=== PATIENT | male | born 1945 | race Caucasian/White ===

== ENCOUNTER 2016-08-27 13:40 | Emergency (ER) | payer MEDICARE, BC ==
[2016-08-27] MEDS ORDERED: IPRATROPIUM-ALBUTEROL 3 ML NEB INHALATION STA (15:33)
--- NOTE | 2016-08-27 15:37 | ED ---
URI HPI - General Chief Complaint: Upper Respiratory Infection Stated Complaint: cough dif breathing Time Seen by Provider: 08/27/16 15:03 Source: patient Mode of arrival: ambulatory Limitations: no limitations - History of Present Illness Initial Comments: The patient is a 71-year-old male who presents to the ED with a chief complaint of cough. Patient states that the cough is intractable in nature. He states that it has been present over the course of the past 6 months. The patient states that he initially went to see his physician in [place], where he resides for the majority of the year. This physician started him on Breo, the patient states helped resolve his symptoms. The patient notes that he went to see a forklift material handler while in [place], who performed a computed tomography scan and MRI for the patient. The patient has had a very extensive workup to determine the etiology of his cough. He states the only thing that helped was Breo. The patient states that his symptoms worsened when he arrived in [place]. He states that he does have a history of seasonal allergies but has been taking his allergy medication. He states that he did not initially have any Breo with him when he arrived in [place]. He was able to call his physician in [place], who was able to prescribe him this medication. The patient denies any fevers or chills. He denies any shortness of breath. He does state that he has a pleuritic pain across the anterior chest and feels as if his chest is congested. Patient does have a history of atrial fibrillation that is paroxysmal in nature. He takes Xarelto for this problem. He has a history of CHF for which he is taking Lasix 40 mg by mouth daily while at home. The patient states that he is currently trying to find a physician in this area of [place]. He has made an appointment with a primary care provider in [place]. He has attempted to make an appointment with a Report Manager, but states that he cannot get in until mid September. - Related Data Home Medications Medication Instructions Recorded Confirmed Amiodarone [Cordarone] 100 mg PO DAILY 08/27/16 08/27/16 Ascorbic Acid [Vitamin C] 500 mg PO DAILY 08/27/16 08/27/16 Calcium Carbonate [Calcium] 600 mg PO DAILY 08/27/16 08/27/16 Ezetimibe [Zetia] 10 mg PO HS 08/27/16 08/27/16 Fluticasone/Vilanterol [Breo 1 puff INHALATION RT-DAILY 08/27/16 08/27/16 Ellipta 100-25 Mcg Inhaler] Furosemide [Lasix] 40 mg PO DAILY 08/27/16 08/27/16 Levocetirizine Dihydrochloride 5 mg PO DAILY 08/27/16 08/27/16 Multivitamins, Thera [Multivitamin 1 tab PO DAILY 08/27/16 08/27/16 (formulary)] Olopatadine HCl [Pataday] 1 drop BOTH EYES BID PRN 08/27/16 08/27/16 Shellman-3/Dha/Epa/Fish Oil [Fish Oil 2 cap PO BID 08/27/16 08/27/16 EC 1,000 mg Softgel] Pantoprazole Sodium [Protonix] 40 mg PO DAILY 08/27/16 08/27/16 Rivaroxaban [Xarelto] 20 mg PO HS 08/27/16 08/27/16 amLODIPine BESYLATE/BENAZEPRIL 1 cap PO BID 08/27/16 08/27/16 [Lotrel 5-20 mg Capsule] Previous Rx's Medication Instructions Recorded Azithromycin [Zithromax] 500 mg PO DAILY #5 tab 08/27/16 predniSONE 40 mg PO DAILY #10 tab 08/27/16 Allergies Allergy/AdvReac Type Severity Reaction Status Date / Time tramadol Allergy Rash/Hives Verified 08/27/16 15:41 Review of Systems ROS Statement: Those systems with pertinent positive or pertinent negative responses have been documented in the HPI. ROS Other: All systems not noted in ROS Statement are negative. Constitutional: Denies: fever, chills, weakness Eyes: Denies: eye pain ENT: Denies: ear pain, throat pain, dental pain Respiratory: Reports: cough, wheezes. Denies: dyspnea, hemoptysis, stridor Cardiovascular: Reports: chest pain (pleuritic) Endocrine: Denies: fatigue Gastrointestinal: Denies: abdominal pain, nausea, vomiting, diarrhea, constipation Genitourinary: Denies: urgency, dysuria, frequency, hematuria Musculoskeletal: Denies: back pain Skin: Denies: rash, lesions, change in color Neurological: Denies: headache, weakness, numbness Psychiatric: Denies: anxiety, depression Past Medical History Past Medical History: Atrial Fibrillation, Asthma, Heart Failure, CVA/TIA, GERD/ Reflux, Hyperlipidemia, Hypertension History of Any Multi-Drug Resistant Organisms: None Reported Past Surgical History: Cholecystectomy, Heart Catheterization, Orthopedic Surgery Additional Past Surgical History / Comment(s): right knee, fatty tumor removal neck Past Psychological History: No Psychological Hx Reported Smoking Status: Never smoker Past Alcohol Use History: Rare Past Drug Use History: None Reported General Exam Limitations: no limitations General appearance: alert, in no apparent distress Head exam: Present: atraumatic, normocephalic Eye exam: Present: normal appearance, PERRL, EOMI Pupils: Present: normal accommodation ENT exam: Present: normal exam, normal oropharynx Neck exam: Present: normal inspection, full ROM Respiratory exam: Present: wheezes (trace bilateral expiratory wheezes). Absent : normal lung sounds bilaterally, respiratory distress, rales, rhonchi, stridor Cardiovascular Exam: Present: regular rate, normal rhythm. Absent: bradycardia , tachycardia, irregular rhythm GI/Abdominal exam: Present: soft. Absent: distended, tenderness, guarding, rebound Extremities exam: Present: normal inspection. Absent: pedal edema Back exam: Present: normal inspection, full ROM Neurological exam: Present: alert, oriented X3 Psychiatric exam: Present: normal affect, normal mood Skin exam: Present: warm, dry, intact Course Vital Signs 08/27/16 08/27/16 08/27/16 14:05 15:46 16:06 Temperature 97.2 F L Pulse Rate 63 55 L 56 L Respiratory 16 20 Rate Blood Pressure 169/80 161/85 O2 Sat by Pulse 90 L 91 L Oximetry 08/27/16 08/27/16 16:13 17:57 Temperature 97.4 F L Pulse Rate 56 L 57 L Respiratory 18 Rate Blood Pressure 157/82 O2 Sat by Pulse 92 L Oximetry Medical Decision Making - Medical Decision Making Patient is a 71-year-old male who presents to the ED with a chief complaint of cough. Patient states that he's undergone an extensive evaluation as an outpatient. All of this workup was in [place]. He states that he seen a Report Manager in [place], who ordered a CT and MRI of his chest. He states that everything came back normal and they were unable to determine the etiology of his cough. Patient has no history of smoking. He states that he did smoke cigars for a few years but that he never inhaled. Patient notes that the only medication that is made a difference with his cough is Breo. He denies that he' s been on any recent steroid therapy. Patient does cite pleuritic pain with his cough. States cough is worse laying flat. Patient does have a known history of CHF for which she is currently using Lasix. Will provide patient with DuoNeb treatment. Check chest x-ray. Check lab work including BNP as well as troponin. EKG. Keep patient on quality assurance monitor chassis and continuous pulse oximetry. 5:27 PM Updated the patient and his of overall findings, including evidence of probable COPD. There is a questionable left-sided pleural effusion on chest x- ray. I have suggested to the patient that he could be suffering from chronic bronchitis. Recommended that he continue to follow up with Pulmonology for his appointment in mid-September. Will discharge patient home with a short course of steroids as well as azithromycin. Patient has been provided with a dose of azithromycin as well as steroids while here in the ED. I have encouraged the patient to continue with his Breo inhaler while at home. I have answered all his questions to his satisfaction. I have encouraged him to return to the ED should he have worsening symptoms while home. - Lab Data Result diagrams: 08/27/16 15:55 08/27/16 15:55 Lab Results 08/27/16 08/27/16 08/27/16 Range/Units 15:55 15:55 15:55 WBC 7.2 (3.8-10.6) k/uL RBC 5.91 H (4.30-5.90) m/uL Hgb 15.5 (13.0-17.5) gm/dL Hct 48.6 (39.0-53.0) % MCV 82.1 (80.0-100.0) fL MCH 26.2 (25.0-35.0) pg MCHC 31.9 (31.0-37.0) g/dL RDW 14.9 (11.5-15.5) % Plt Count 241 (150-450) k/uL Neutrophils % 67 % Lymphocytes % 17 % Monocytes % 6 % Eosinophils % 8 % Basophils % 2 % Neutrophils # 4.8 (1.3-7.7) k/uL Lymphocytes # 1.2 (1.0-4.8) k/uL Monocytes # 0.4 (0-1.0) k/uL Eosinophils # 0.5 (0-0.7) k/uL Basophils # 0.1 (0-0.2) k/uL Hypochromasia Slight Sodium 143 (137-145) mmol/L Potassium 4.0 (3.5-5.1) mmol/L Chloride 105 (98-107) mmol/L Carbon Dioxide 25 (22-30) mmol/L Anion Gap 13 mmol/L BUN 21 H (9-20) mg/dL Creatinine 0.99 (0.66-1.25) mg/dL Est GFR (MDRD) Af Amer >60 (>60 ml/min/1.73 sqM) Est GFR (MDRD) Non-Af >60 (>60 ml/min/1.73 sqM) Glucose 99 (74-99) mg/dL Calcium 9.6 (8.4-10.2) mg/dL Magnesium 2.0 (1.6-2.3) mg/dL Troponin I (0.000-0.034) ng/mL NT-Pro-B Natriuret Pep 38 pg/mL 08/27/16 Range/Units 15:55 WBC (3.8-10.6) k/uL RBC (4.30-5.90) m/uL Hgb (13.0-17.5) gm/dL Hct (39.0-53.0) % MCV (80.0-100.0) fL MCH (25.0-35.0) pg MCHC (31.0-37.0) g/dL RDW (11.5-15.5) % Plt Count (150-450) k/uL Neutrophils % % Lymphocytes % % Monocytes % % Eosinophils % % Basophils % % Neutrophils # (1.3-7.7) k/uL Lymphocytes # (1.0-4.8) k/uL Monocytes # (0-1.0) k/uL Eosinophils # (0-0.7) k/uL Basophils # (0-0.2) k/uL Hypochromasia Sodium (137-145) mmol/L Potassium (3.5-5.1) mmol/L Chloride (98-107) mmol/L Carbon Dioxide (22-30) mmol/L Anion Gap mmol/L BUN (9-20) mg/dL Creatinine (0.66-1.25) mg/dL Est GFR (MDRD) Af Amer (>60 ml/min/1.73 sqM) Est GFR (MDRD) Non-Af (>60 ml/min/1.73 sqM) Glucose (74-99) mg/dL Calcium (8.4-10.2) mg/dL Magnesium (1.6-2.3) mg/dL Troponin I <0.012 (0.000-0.034) ng/mL NT-Pro-B Natriuret Pep pg/mL 08/27/16 15:47 EKG demonstrates NSR with a rate of 57. There are no concerning ST-T changes. MS and QRS intervals are within normal limits. Disposition Clinical Impression: Acute bronchitis, COPD (chronic obstructive pulmonary disease) Disposition: HOME SELF-CARE Condition: Good Instructions: COPD (Chronic Obstructive Pulmonary Disease) (ED), Chronic Bronchitis (ED) Prescriptions: Azithromycin [Zithromax] 500 mg PO DAILY #5 tab predniSONE 40 mg PO DAILY #10 tab Referrals: Nonstaff,Physician [Primary Care Provider] - 1-2 days Time of Disposition: 17:27
[2016-08-27 16:05] LABS: Basophils # (A) 0.1 k/uL (0-0.2); Basophils % (A) 2 %; CH 26.1; Eosinophils # (A) 0.5 k/uL (0-0.7); Eosinophils % (A) 8 %; HCT 48.6 % (39.0-53.0); HDW 2.83; HGB 15.5 gm/dL (13.0-17.5); Hypochromasia Slight; Luc # (Auto) 0.11; Luc % (Auto) 2; Lymphocytes # (A) 1.2 k/uL (1.0-4.8); Lymphocytes % (A) 17 %; MCH 26.2 pg (25.0-35.0); MCHC 31.9 g/dL (31.0-37.0); MCV 82.1 fL (80.0-100.0); Mean Platelet Volume 8.1; Monocytes # (A) 0.4 k/uL (0-1.0); Monocytes % (A) 6 %; Neutrophils # (A) 4.8 k/uL (1.3-7.7); Neutrophils % (A) 67 %; RBC 5.91 m/uL (4.30-5.90); RDW 14.9 % (11.5-15.5); WBC 7.2 k/uL (3.8-10.6); WBC (Perox) 7.26
--- NOTE | 2016-08-27 16:10 | XR ---
EXAMINATION TYPE: XR chest 2V DATE OF EXAM: 08/27/2016 HISTORY: Cough. REFERENCE: Previous study dated 09/05/2011. FINDINGS: Lung volumes are prominent. The lungs are clear. There is a small left pleural reaction whi ch may represent a small amount of fluid. The heart is not enlarged.. IMPRESSION: 1. COPD. 2. I CANNOT EXCLUDE A SMALL LEFT-SIDED EFFUSION.
[2016-08-27 16:26] LABS: Anion Gap 13 mmol/L; Blood Urea Nitrogen 21 mg/dL (9-20); Calcium 9.6 mg/dL (8.4-10.2); Carbon Dioxide 25 mmol/L (22-30); Chloride 105 mmol/L (98-107); Glucose 99 mg/dL (74-99); Non-African American GFR(MDRD) >60 (>60 ml/min/1.73 sqM); Sodium 143 mmol/L (137-145)
[2016-08-27] MEDS ORDERED: AZITHROMYCIN 500 MG TAB PO STA (17:25)
[2016-08-27] MEDS ORDERED: predniSONE 20 MG TAB PO STA (17:25)
[2016-08-27 17:58] VITALS: BP 157/82; PULSE 57; RESP 18; TEMP 97.4
== END 2016-08-27 17:57 | disposition home or self-care (01) ==
LOC: EC 13:40
DX: J44.0 Chronic obstructive pulmonary disease with (acute) lower respiratory infection (principal); J20.9 Acute bronchitis, unspecified; R07.81 Pleurodynia; I48.91 Unspecified atrial fibrillation; I11.0 Hypertensive heart disease with heart failure; I50.9 Heart failure, unspecified; K21.9 Gastro-esophageal reflux disease without esophagitis; E78.5 Hyperlipidemia, unspecified; Z86.73 Personal history of transient ischemic attack (TIA), and cerebral infarction without residual deficits; Z79.51 Long term (current) use of inhaled steroids; Z79.01 Long term (current) use of anticoagulants; Z79.899 Other long term (current) drug therapy; Z88.6 Allergy status to analgesic agent
CPT/HCPCS: 36415; 94640; 93005; 83880; 80048; 83735; 84484; 85025; 71020; 99284; J7512

== ENCOUNTER 2019-12-18 08:41 | Inpatient (IN) | payer MEDICARE, BC ==
[2019-12-18] MEDS ORDERED: SODIUM CHLORIDE 0.9% 500 ML 500 ML IV STA (08:56)
[2019-12-18 09:00] LABS: Glucose,Whole Blood 121 mg/dL (75-99)
--- NOTE | 2019-12-18 09:00 | ED ---
General Adult HPI - General Chief complaint: Neuro Symptoms/Deficit Stated complaint: Poss stroke Source: patient Mode of arrival: wheelchair Limitations: physical limitation - History of Present Illness Initial comments: Dictation was produced using [employer] dictation software. please excuse any grammatical, word or spelling errors. This patient was cared for during a federal and state declared state of emergency secondary to Covid 19 Chief Complaint: 74-year-old male presents with stroke like symptoms upon waking. History of Present Illness: Patient is 74-year-old male he has past medical history of cerebrovascular accident and transient ischemic attack 10 years ago. Patient states that he went to bed at 11 PM last night at baseline. He woke up this morning with paresthesias to the palmar aspect of his right palm, interactive his right foot. Patient has history of atrial fibrillation. Takes Xarelto. He woke up this morning at approximately 6 AM symptoms. Patient has any facial weakness. Denies any upper extremity weakness. at bedside reports the patient is not confused dysarthric or aphasic. The ROS documented in this emergency department record has been reviewed and confirmed by me. Those systems with pertinent positive or negative responses have been documented in the HPI. All other systems are other negative and/or noncontributory. PHYSICAL EXAM: General Impression: Alert and oriented x3, not in acute distress HEENT: Normocephalic atraumatic, extra-ocular movements intact, pupils equal and reactive to light bilaterally, mucous membranes moist. Cardiovascular: Heart regular rate and rhythm Chest: Able to complete full sentences, no retractions, no tachypnea Abdomen: abdomen soft, non-tender, non-distended, no organomegaly Musculoskeletal: Pulses present and equal in all extremities, no peripheral edema Motor: no focal deficits noted Neurological: CN II-XII grossly intact, reported paresthesias to the palm of the right hand, mild difficulty with stenting of the right leg, mild ataxia of the right leg. No drift of any of the extremities, no facial asymmetry Skin: Intact with no visualized rashes Psych: Normal affect and mood ED course: 74-year-old male presents with strokelike symptoms upon waking this morning. Vital signs upon arrival are within acceptable limits. Medications reviewed. Patient's last normal was 11 PM last night. Patient given an NIH of 23. Patient is on Xarelto. Patient is not a candidate for TPA. Code stroke was paged. Case is discussed with Dr. Alicea at approximately 9:20 AM. Patient is not a TPA candidate. Nurse performed an NIH with a score of 0. Case was discussed with Dr. Leslie who is our in-house neurologist. Dr. Leslie will make recommendations. We do not have neurology over the weekend however our in-house serology believes patient is appropriate for admission to our hospital. He will make his recommendations today. Discussed patient case with on-call sound physician was willing to accept patients care. Patient given aspirin patient reevaluated at bedside found with stable medical condition. EKG interpretation: Ventricular rate 86, paced rhythm, ID interval 200, QRS 152, QTc 431. No ID prolongation, no QTC prolongation, no ST or T-wave changes noted. - Related Data Home Medications Medication Instructions Recorded Confirmed Ascorbic Acid [Vitamin C] 500 mg PO DAILY 08/27/16 12/18/19 Calcium Carbonate [Calcium] 600 mg PO DAILY 08/27/16 12/18/19 Ezetimibe [Zetia] 10 mg PO HS 08/27/16 12/18/19 Furosemide [Lasix] 40 mg PO DAILY 08/27/16 12/18/19 Levocetirizine Dihydrochloride 5 mg PO DAILY PRN 08/27/16 12/18/19 Multivitamins, Thera [Multivitamin 1 tab PO DAILY 08/27/16 12/18/19 (formulary)] Olopatadine HCl [Pataday] 1 drop BOTH EYES BID PRN 08/27/16 12/18/19 Marquez-3/Dha/Epa/Fish Oil [Fish Oil 2 cap PO HS 08/27/16 12/18/19 EC 1,000 mg Softgel] Pantoprazole Sodium [Protonix] 40 mg PO Q72H 08/27/16 12/18/19 Rivaroxaban [Xarelto] 20 mg PO HS 08/27/16 12/18/19 Albuterol Sulfate [Ventolin HFA] 1 - 2 puff INHALATION RT-Q6H PRN 12/18/19 12/18/19 Cholecalciferol [Vitamin D3 (25 1,000 unit PO DAILY 12/18/19 12/18/19 Mcg = 1000 Iu)] Difluprednate [Durezol] 1 drop LEFT EYE BID 12/18/19 12/18/19 Fluticasone Nasal [place] [Flonase 1 spr EA NOSTRIL DAILY PRN 12/18/19 12/18/19 Nasal [place]] Losartan Potassium 100 mg PO HS 12/18/19 12/18/19 Magnesium Gluconate [Magonate] 500 mg PO BID 12/18/19 12/18/19 Metoprolol Succinate [Toprol XL] 25 mg PO HS 12/18/19 12/18/19 NIFEdipine [Procardia XL] 60 mg PO HS 12/18/19 12/18/19 cloNIDine HCL [Catapres] 0.1 mg PO DAILY PRN MDD OVER 155 12/18/19 12/18/19 clonazePAM [KlonoPIN] 0.5 mg PO DAILY PRN 12/18/19 12/18/19 guaiFENesin [Mucinex] 600 mg PO BID 12/18/19 12/18/19 Allergies Allergy/AdvReac Type Severity Reaction Status Date / Time tramadol Allergy Rash/Hives Verified 12/18/19 10:00 Review of Systems ROS Statement: Those systems with pertinent positive or pertinent negative responses have been documented in the HPI. ROS Other: All systems not noted in ROS Statement are negative. Past Medical History Past Medical History: Atrial Fibrillation, Asthma, Heart Failure, CVA/TIA, GERD/Reflux, Hyperlipidemia, Hypertension History of Any Multi-Drug Resistant Organisms: None Reported Past Surgical History: Cholecystectomy, Heart Catheterization, Orthopedic Surgery Additional Past Surgical History / Comment(s): right knee, fatty tumor removal neck Past Psychological History: No Psychological Hx Reported Smoking Status: Former smoker Past Alcohol Use History: Rare Past Drug Use History: None Reported General Exam Limitations: physical limitation Course Vital Signs 12/18/19 12/18/19 12/18/19 08:42 08:50 09:05 Temperature 97.5 F L 97.9 F 97.7 F Pulse Rate 50 L 55 L 89 Respiratory 18 16 18 Rate Blood Pressure 128/69 134/85 142/70 O2 Sat by Pulse 98 96 96 Oximetry Medical Decision Making - Lab Data Result diagrams: 12/18/19 09:02 12/18/19 09:02 Lab Results 12/18/19 12/18/19 12/18/19 Range/Units 08:56 09:02 09:02 WBC 6.8 (3.8-10.6) k/uL RBC 6.12 H (4.30-5.90) m/uL Hgb 17.6 H (13.0-17.5) gm/dL Hct 54.7 H (39.0-53.0) % MCV 89.3 (80.0-100.0) fL MCH 28.8 (25.0-35.0) pg MCHC 32.3 (31.0-37.0) g/dL RDW 13.4 (11.5-15.5) % Plt Count 220 (150-450) k/uL Neutrophils % 63 % Lymphocytes % 23 % Monocytes % 6 % Eosinophils % 5 % Basophils % 1 % Neutrophils # 4.3 (1.3-7.7) k/uL Lymphocytes # 1.6 (1.0-4.8) k/uL Monocytes # 0.4 (0-1.0) k/uL Eosinophils # 0.3 (0-0.7) k/uL Basophils # 0.1 (0-0.2) k/uL PT 14.4 H (9.0-12.0) sec INR 1.5 H (<1.2) APTT 33.3 H (22.0-30.0) sec Sodium (137-145) mmol/L Potassium (3.5-5.1) mmol/L Chloride (98-107) mmol/L Carbon Dioxide (22-30) mmol/L Anion Gap mmol/L BUN (9-20) mg/dL Creatinine (0.66-1.25) mg/dL Est GFR (CKD-EPI)AfAm (>60 ml/min/1.73 sqM) Est GFR (CKD-EPI)NonAf (>60 ml/min/1.73 sqM) Glucose (74-99) mg/dL POC Glucose (mg/dL) 121 H (75-99) mg/dL POC Glu Baby Stroller Rental Clerk ID [place] Calcium (8.4-10.2) mg/dL Magnesium (1.6-2.3) mg/dL Total Bilirubin (0.2-1.3) mg/dL AST (17-59) U/L ALT (4-49) U/L Alkaline Phosphatase (38-126) U/L Troponin I (0.000-0.034) ng/mL Total Protein (6.3-8.2) g/dL Albumin (3.5-5.0) g/dL 12/18/19 12/18/19 Range/Units 09:02 09:02 WBC (3.8-10.6) k/uL RBC (4.30-5.90) m/uL Hgb (13.0-17.5) gm/dL Hct (39.0-53.0) % MCV (80.0-100.0) fL MCH (25.0-35.0) pg MCHC (31.0-37.0) g/dL RDW (11.5-15.5) % Plt Count (150-450) k/uL Neutrophils % % Lymphocytes % % Monocytes % % Eosinophils % % Basophils % % Neutrophils # (1.3-7.7) k/uL Lymphocytes # (1.0-4.8) k/uL Monocytes # (0-1.0) k/uL Eosinophils # (0-0.7) k/uL Basophils # (0-0.2) k/uL PT (9.0-12.0) sec INR (<1.2) APTT (22.0-30.0) sec Sodium 140 (137-145) mmol/L Potassium 4.4 (3.5-5.1) mmol/L Chloride 107 (98-107) mmol/L Carbon Dioxide 24 (22-30) mmol/L Anion Gap 9 mmol/L BUN 25 H (9-20) mg/dL Creatinine 1.00 (0.66-1.25) mg/dL Est GFR (CKD-EPI)AfAm 84 (>60 ml/min/1.73 sqM) Est GFR (CKD-EPI)NonAf 73 (>60 ml/min/1.73 sqM) Glucose 125 H (74-99) mg/dL POC Glucose (mg/dL) (75-99) mg/dL POC Glu Baby Stroller Rental Clerk ID Calcium 9.4 (8.4-10.2) mg/dL Magnesium 2.1 (1.6-2.3) mg/dL Total Bilirubin 0.8 (0.2-1.3) mg/dL AST 46 (17-59) U/L ALT 68 H (4-49) U/L Alkaline Phosphatase 109 (38-126) U/L Troponin I <0.012 (0.000-0.034) ng/mL Total Protein 7.8 (6.3-8.2) g/dL Albumin 4.7 (3.5-5.0) g/dL Critical Care Time Critical Care Time: Yes Total Critical Care Time: 33 Disposition Clinical Impression: Cerebrovascular accident (CVA) Disposition: ADMITTED IP TO THIS [facility] Condition: Fair Referrals: None,Stated [REFERRING] - 1-2 days Decision Time: 10:15
[2019-12-18] MEDS ORDERED: RX INFO: IV CONTRAST WAS GIVEN 1 EACH MISC MISCELLANE PRN (09:03)
[2019-12-18 09:14] LABS: Basophils # (A) 0.1 k/uL (0-0.2); Basophils % (A) 1 %; Eosinophils # (A) 0.3 k/uL (0-0.7); Eosinophils % (A) 5 %; HCT 54.7 % (39.0-53.0); HGB 17.6 gm/dL (13.0-17.5); Lymphocytes # (A) 1.6 k/uL (1.0-4.8); Lymphocytes % (A) 23 %; MCH 28.8 pg (25.0-35.0); MCHC 32.3 g/dL (31.0-37.0); MCV 89.3 fL (80.0-100.0); Mean Platelet Volume 9.2; Monocytes # (A) 0.4 k/uL (0-1.0); Monocytes % (A) 6 %; Neutrophils # (A) 4.3 k/uL (1.3-7.7); Neutrophils % (A) 63 %; Platelet Count 220 k/uL (150-450); RBC 6.12 m/uL (4.30-5.90); RDW 13.4 % (11.5-15.5); WBC 6.8 k/uL (3.8-10.6)
--- NOTE | 2019-12-18 09:21 | CT ---
EXAMINATION TYPE: CT brain wo con for TPA DATE OF EXAM: 12/18/2019 COMPARISON: None INDICATION: CVA DLP: 1140.8 mGycm, Automated exposure control for dose reduction was used. CONTRAST: None CT of the brain is performed utilizing 3 mm thick sections through the posterior fossa and 3 mm thick sections through the remaining calvarium. Study is performed within 24 hours of arrival to the hosp [place]. No abnormal hyperdensity is present to suggest an acute intracranial hemorrhage. No mass lesion is evident. No acute infarcts are evident. Ventricles and sulci are appropriate for the patient age. Paranasal sinuses and mastoid air cells within the [id number] are essentially clear. Small retenti on cyst partially visualized in the right maxillary sinus. IMPRESSIONS: 1. No acute intracranial process.
[2019-12-18 09:25] LABS: Albumin 4.7 g/dL (3.5-5.0); Calcium 9.4 mg/dL (8.4-10.2); Magnesium 2.1 mg/dL (1.6-2.3); Potassium 4.4 mmol/L (3.5-5.1); Total Bilirubin 0.8 mg/dL (0.2-1.3); Total Protein 7.8 g/dL (6.3-8.2)
[2019-12-18 09:29] LABS: INR 1.5 (<1.2); Partial Thromboplastin Time 33.3 sec (22.0-30.0); Prothrombin Time 14.4 sec (9.0-12.0)
--- NOTE | 2019-12-18 09:50 | XR ---
EXAMINATION TYPE: XR chest 2V DATE OF EXAM: 12/18/2019 CLINICAL HISTORY: Altered mental status TECHNIQUE: Frontal and lateral views of the chest are obtained. COMPARISON: 08/27/16 chest x-ray FINDINGS: Left-sided dual tube or pacemaker. Low lung volumes accentuates the cardiac silhouette. Ca rdiomegaly and pulmonary vascular congestion. More focal airspace opacity over the right base. No eff usion, or pneumothorax seen. The osseous structures are intact. IMPRESSION: Cardiomegaly and pulmonary vascular congestion. More focal appearing airspace opacity ove r the right base may represent pulmonary edema versus pneumonia.
--- NOTE | 2019-12-18 09:59 | CT ---
EXAMINATION TYPE: CT angio head neck DATE OF EXAM: 12/18/2019 HISTORY: Code stroke and weakness in right side COMPARISON: CT brain same date CT DLP: 663.3 mGycm. Automated Exposure Control for Dose Reduction was Utilized. TECHNIQUE: CTA scan of the neck is performed with IV Contrast, patient injected with 75 mL of Isovue 370, axial images are obtained, coronal and sagittal reformatted images are reviewed. Three-D recons tructed images are created on an independent workstation and reviewed. FINDINGS: Carotid/Vascular Structures: The right pulmonary artery is dilated to 3.2 cm, consider pulmonary jennifer ry hypertension. The transverse aorta, innominate, left and right common carotid, left and right subc lavian arteries are patent. Internal and external carotid arteries are patent. Vertebral arteries are patent and codominant. The anterior and posterior circulation within the brain are patent. No evident aneurysm, dissection, or embolus. Other: Calcified right hilar nodes are present. Leads are present within the superior vena cava and i nnominate vein. Calcified nodule present in the right upper lobe. Degenerative disc disease, multilev el foraminal encroachment and facet arthropathy noted in the cervical spine. IMPRESSION: No significant abnormality is seen. No stenosis by NASCET criteria within the proximal i nternal carotid arteries
[2019-12-18] MEDS ORDERED: NALOXONE 0.4 MG/ML 1 ML VIAL IV PRN (10:12)
[2019-12-18] MEDS ORDERED: ASPIRIN 81 MG PO STA (10:14)
[2019-12-18] MEDS ORDERED: SODIUM CHLORIDE 0.9% 1,000 ML IV SCH (10:15)
[2019-12-18] MEDS ORDERED: FLUTICASONE 50MCG/SPRAY NASAL 16GM EA NOSTRIL PRN (11:02)
[2019-12-18] MEDS ORDERED: clonazePAM 0.5 MG TAB PO PRN (11:02)
[2019-12-18] MEDS ORDERED: cloNIDine HCL 0.1 MG TAB PO PRN (11:02)
[2019-12-18] MEDS ORDERED: KETOTIFEN 0.025% OPHTH DROPS 5 ML BTL BOTH EYES PRN (11:02)
[2019-12-18] MEDS: SODIUM CHLORIDE 0.9% 1,000 ML IV SCH ×2 (12:01→23:15)
--- NOTE | 2019-12-18 13:32 | P.HPIM ---
History of Present Illness H&P Date: 12/18/19 Chief Complaint: Right-sided numbness and weakness This is a 74-year-old male with past medical history noted below significant for chronic atrial fibrillation on anticoagulation with Rivaroxaban and a prior history of TIA who woke up this morning with numbness involving his right arm and mostly his right hand in the palm area. Patient said that he also noted slight weakness on the right side of his body involving both his arm and his leg. He said that he has to ''coordinate''to be able to walk around. He denies any numbness or tingling at this time. No headache or vision change. He was evaluated in the ER and computed tomography scan of the head and CT angiogram of the head and neck showed no acute intracranial findings. He was not a candidate for TPA. This was discussed with interventional neurologist by ER staff. He is currently admitted to the hospital for further management. He reported that he still feels ''funny''in his right arm and leg but denies any weakness or numbness. Review of Systems Review of system: 14 points review of systems were obtained and were negative except to what were mentioned in the HPI. Past Medical History Past Medical History: Atrial Fibrillation, Asthma, Heart Failure, CVA/TIA, GERD/Reflux, Hyperlipidemia, Hypertension History of Any Multi-Drug Resistant Organisms: None Reported Past Surgical History: Cholecystectomy, Heart Catheterization, Orthopedic Surgery Additional Past Surgical History / Comment(s): right knee, fatty tumor removal neck Past Psychological History: No Psychological Hx Reported Smoking Status: Former smoker Past Alcohol Use History: Rare Past Drug Use History: None Reported - Past Family History Father Family Medical History: Cancer Additional Family Medical History / Comment(s): Father from prostate cancer complications and had heart disease. Mother Family Medical History: Renal Disease Medications and Allergies Home Medications Medication Instructions Recorded Confirmed Type Ascorbic Acid [Vitamin C] 500 mg PO DAILY 08/27/16 12/18/19 History Calcium Carbonate [Calcium] 600 mg PO DAILY 08/27/16 12/18/19 History Ezetimibe [Zetia] 10 mg PO HS 08/27/16 12/18/19 History Furosemide [Lasix] 40 mg PO DAILY 08/27/16 12/18/19 History Levocetirizine Dihydrochloride 5 mg PO DAILY PRN 08/27/16 12/18/19 History Multivitamins, Thera [Multivitamin 1 tab PO DAILY 08/27/16 12/18/19 History (formulary)] Olopatadine HCl [Pataday] 1 drop BOTH EYES BID PRN 08/27/16 12/18/19 History [place]-3/Dha/Epa/Fish Oil [Fish Oil 2 cap PO HS 08/27/16 12/18/19 History EC 1,000 mg Softgel] Pantoprazole Sodium [Protonix] 40 mg PO Q72H 08/27/16 12/18/19 History Rivaroxaban [Xarelto] 20 mg PO HS 08/27/16 12/18/19 History Albuterol Sulfate [Ventolin HFA] 1 - 2 puff INHALATION RT-Q6H PRN 12/18/19 12/18/19 History Cholecalciferol [Vitamin D3 (25 1,000 unit PO DAILY 12/18/19 12/18/19 History Mcg = 1000 Iu)] Difluprednate [Durezol] 1 drop LEFT EYE BID 12/18/19 12/18/19 History Fluticasone Nasal [place] [Flonase 1 spr EA NOSTRIL DAILY PRN 12/18/19 12/18/19 History Nasal [place]] Losartan Potassium 100 mg PO HS 12/18/19 12/18/19 History Magnesium Gluconate [Magonate] 500 mg PO BID 12/18/19 12/18/19 History Metoprolol Succinate [Toprol XL] 25 mg PO HS 12/18/19 12/18/19 History NIFEdipine [Procardia XL] 60 mg PO HS 12/18/19 12/18/19 History cloNIDine HCL [Catapres] 0.1 mg PO DAILY PRN MDD OVER 155 12/18/19 12/18/19 History clonazePAM [KlonoPIN] 0.5 mg PO DAILY PRN 12/18/19 12/18/19 History guaiFENesin [Mucinex] 600 mg PO BID 12/18/19 12/18/19 History Allergies Allergy/AdvReac Type Severity Reaction Status Date / Time tramadol Allergy Rash/Hives Verified 12/18/19 10:00 Physical Exam Vitals: Vital Signs Temp Pulse Resp BP Pulse Ox 12/18/19 09:05 97.7 F 89 18 142/70 96 12/18/19 08:50 97.9 F 55 L 16 134/85 96 12/18/19 08:42 97.5 F L 50 L 18 128/69 98 Intake and Output 12/17/19 12/18/19 12/18/19 22:59 06:59 14:59 Other: Weight 83.915 kg General: The patient is awake and alert, in no distress Eye: there is normal conjunctiva bilaterally. Neck: The neck is supple, there is no JVD. Cardiovascular: Normal S1-S2, no S3-S4, no murmurs. Respiratory: Lungs clear to auscultation bilaterally Gastrointestinal: Abdomen is soft, nontender Musculoskeletal: There is no pedal edema. Neurological:. Speech is normal. Skin: Skin is warm and dry Results CBC & Chem 7: 12/18/19 09:02 12/18/19 09:02 Labs: Abnormal Lab Results - Last 24 Hours (Table) 12/18/19 12/18/19 12/18/19 Range/Units 08:56 09:02 09:02 RBC 6.12 H (4.30-5.90) m/uL Hgb 17.6 H (13.0-17.5) gm/dL Hct 54.7 H (39.0-53.0) % PT 14.4 H (9.0-12.0) sec INR 1.5 H (<1.2) APTT 33.3 H (22.0-30.0) sec BUN (9-20) mg/dL Glucose (74-99) mg/dL POC Glucose (mg/dL) 121 H (75-99) mg/dL ALT (4-49) U/L 12/18/19 Range/Units 09:02 RBC (4.30-5.90) m/uL Hgb (13.0-17.5) gm/dL Hct (39.0-53.0) % PT (9.0-12.0) sec INR (<1.2) APTT (22.0-30.0) sec BUN 25 H (9-20) mg/dL Glucose 125 H (74-99) mg/dL POC Glucose (mg/dL) (75-99) mg/dL ALT 68 H (4-49) U/L Assessment and Plan Assessment: 1. Suspected TIA with right-sided numbness and weakness now resolved. Computed tomography scan of the head and CT angiogram of the head and neck with no acute findings. Neurology consulted for further evaluation. Patient is on Rivaroxaban and at home. Aspirin 81 mg daily. Patient has a pacemaker that he told me that his MRI compatible and he had MRIs in the past. We will discuss with radiology. Echocardiogram ordered. Continue telemetry monitoring. PT/OT/speech pathology evaluation. 2. Chronic atrial fibrillation status post pacemaker implantation, on anticoagulation with Rivaroxaban. Heart rate well controlled. 3. Essential hypertension: Blood pressure well controlled. Continue home regimen 4. Mixed hyperlipidemia, on Zetia. We will check fasting lipid profile. I added Lipitor 40 mg at bedtime to his regimen 5. GERD on Protonix Today, I reviewed his medication list and lab work results. Continue IV fluid hydration with normal saline at 75 mL per hour. Telemetry monitoring. Awaiting neurology consultation. Repeat lab work in the morning.
--- NOTE | 2019-12-18 17:27 | P.CNNES ---
History of Present Illness Consult date: 12/18/19 Requesting physician: Irving Wilkinson Reason for Consult: Stroke code History of Present Illness: Patient is a 74-year-old male came to the hospital today at 8:41 AM for strokelike symptoms upon awakening. Patient has history of CVA and TIA 10 years ago. Patient states that he woke up at 5 AM in the morning went to bathroom and was fine. He went back to bed. At 6 AM he woke up and got up to go to the bathroom, was feeling unsteady, right arm and leg felt weak. He felt numbness and tingling in the hand and the right foot. Patient states his speech was fine, no issues with the vision, no facial droop or headache. He was feeling unsteady when standing, as if he could fall because of right leg feeling weak. Vital signs on arrival was blood pressure 128/69, pulse rate 50, temperature 97.5 patient blood test shows normal WBC hemoglobin 17.6, platelets 220, INR is 1.5, PTT 33.3 Chem-7 normal. ALT is mildly elevated 68 whereas AST normal 46. Troponin negative. CT head negative. Chest x-ray showed cardiomegaly and pulmonary vascular congestion. More focal appearing airspace opacity over the right base may represent pulmonary edema versus pneumonia. CTA of head and neck showed no significant abnormality. No stenosis, or aneurysm. EKG shows demand pacemaker, interpretation is based on intrinsic rhythm. Mild sinus bradycardia with premature supraventricular complexes and premature ventricular complexes of fusion complex. Patient does take Xarelto 20 mg daily for history of atrial fibrillation for the last 10 years. He states that he does not miss the dose of his medications. He does not take antiplatelet medication with it. 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 Patient has hypertension denies diabetes, nonsmoker. Review of Systems At present all the symptoms have mostly resolved. At present he just feels some unsteadiness on the feet, not necessarily related to one or the other leg. Denies any other focal symptoms denies any chest pain shortness of breath wheezing or cough. All other review systems reviewed and noncontributory. Past Medical History Past Medical History: Atrial Fibrillation, Asthma, CVA/TIA, Eye Disorder, GERD/Reflux, Hyperlipidemia, Hypertension Additional Past Medical History / Comment(s): TIA approximately 10 yrs ago, past Afib/cardioversion and pt states now just has a few "extra beats", bradycardia with pacer, occasional lower leg edema pt states side effect of one of his medications/denies CHF, bronchitis, BPH, beinign colon polyps, diverticular disease, seasonal sinus problems, L eye pain since cataract surgery. History of Any Multi-Drug Resistant Organisms: None Reported Past Surgical History: Cholecystectomy, Heart Catheterization, Orthopedic Surgery Additional Past Surgical History / Comment(s): MARYSE/cardioversion, pacemaker, R knee arthroscopic surgery, colonoscopy/benign polypectomies, bilateral cataract removals, fatty tumor removed from neck. Additional Past Anesthesia/Blood Transfusion Reaction / Comment(s): Pt has clausterphobia. Smoking Status: Never smoker - Past Family History Father Family Medical History: Cancer Additional Family Medical History / Comment(s): Father from prostate cancer complications and had heart disease. Mother Family Medical History: Renal Disease Medications and Allergies Home Medications Medication Instructions Recorded Confirmed Type Ascorbic Acid [Vitamin C] 500 mg PO DAILY 08/27/16 12/18/19 History Calcium Carbonate [Calcium] 600 mg PO DAILY 08/27/16 12/18/19 History Ezetimibe [Zetia] 10 mg PO HS 08/27/16 12/18/19 History Furosemide [Lasix] 40 mg PO DAILY 08/27/16 12/18/19 History Levocetirizine Dihydrochloride 5 mg PO DAILY PRN 08/27/16 12/18/19 History Multivitamins, Thera [Multivitamin 1 tab PO DAILY 08/27/16 12/18/19 History (formulary)] Olopatadine HCl [Pataday] 1 drop BOTH EYES BID PRN 08/27/16 12/18/19 History [place]-3/Dha/Epa/Fish Oil [Fish Oil 2 cap PO HS 08/27/16 12/18/19 History EC 1,000 mg Softgel] Pantoprazole Sodium [Protonix] 40 mg PO Q72H 08/27/16 12/18/19 History Rivaroxaban [Xarelto] 20 mg PO HS 08/27/16 12/18/19 History Albuterol Sulfate [Ventolin HFA] 1 - 2 puff INHALATION RT-Q6H PRN 12/18/19 12/18/19 History Cholecalciferol [Vitamin D3 (25 1,000 unit PO DAILY 12/18/19 12/18/19 History Mcg = 1000 Iu)] Difluprednate [Durezol] 1 drop LEFT EYE BID 12/18/19 12/18/19 History Fluticasone Nasal [place] [Flonase 1 spr EA NOSTRIL DAILY PRN 12/18/19 12/18/19 History Nasal [place]] Losartan Potassium 100 mg PO HS 12/18/19 12/18/19 History Magnesium Gluconate [Magonate] 500 mg PO BID 12/18/19 12/18/19 History Metoprolol Succinate [Toprol XL] 25 mg PO HS 12/18/19 12/18/19 History NIFEdipine [Procardia XL] 60 mg PO HS 12/18/19 12/18/19 History cloNIDine HCL [Catapres] 0.1 mg PO DAILY PRN MDD OVER 155 12/18/19 12/18/19 History clonazePAM [KlonoPIN] 0.5 mg PO DAILY PRN 12/18/19 12/18/19 History guaiFENesin [Mucinex] 600 mg PO BID 12/18/19 12/18/19 History Allergies Allergy/AdvReac Type Severity Reaction Status Date / Time tramadol Allergy Rash/Hives Verified 12/18/19 10:00 Physical Examination - Vital Signs Vital Signs: Vital Signs Temp Pulse Resp BP Pulse Ox 12/18/19 10:15 87 16 131/76 95 12/18/19 09:05 97.7 F 89 18 142/70 96 12/18/19 08:50 97.9 F 55 L 16 134/85 96 12/18/19 08:42 97.5 F L 50 L 18 128/69 98 Intake and Output 12/17/19 12/18/19 12/18/19 22:59 06:59 14:59 Other: Weight 83.915 kg On examination patient is an elderly male, in no acute distress. Patient is alert and awake oriented to time place and person. Speech and language functions are normal. Attention and concentration fund of knowledge is adequate. On cranial nerve examination pupils are small about 2-3 mm, minimally reactive. Extraocular muscles are intact with no nystagmus. Face is symmetric, tongue protrudes the midline. Palatal elevation and sensation normal. Hearing and shoulder shrug normal. On muscle strength testing there is no pronator drift and the strength is normal in arms and legs distally and proximally reflexes are symmetric and plantars are downgoing. Sensory touch is equal. No ataxia for [id number] testing. Tone and bulk of muscles normal. Patient appeared fairly steady while walking. There is no current bruit or murmur, peripheral pulses present. Abdomen soft and nontender, chest clear. Results - Laboratory Findings CBC and BMP: 12/18/19 09:02 12/18/19 09:02 Abnormal Lab Findings: Abnormal Labs 12/18/19 12/18/19 12/18/19 08:56 09:02 09:02 RBC 6.12 H Hgb 17.6 H Hct 54.7 H PT 14.4 H INR 1.5 H APTT 33.3 H BUN Glucose POC Glucose (mg/dL) 121 H ALT 12/18/19 09:02 RBC Hgb Hct PT INR APTT BUN 25 H Glucose 125 H POC Glucose (mg/dL) ALT 68 H Assessment and Plan Assessment: * Possible stroke/TIA, with right-sided weakness, that has improved. * Atrial fibrillation, on long-term anticoagulation with Xarelto. * History of TIA in the past. * Hypertension * Hyperlipidemia Plan: * Patient will be continued on Xarelto. * Agree with adding aspirin 81 mg daily for stroke prevention related to small vessel disease/atherosclerotic cerebrovascular disease. No significant stenos is noted in the CTA. * 2-D echo with bubble study, rule out PFO. * Hemoglobin A1c 6.0 * Fasting lipid panel. Patient currently on fish oil. May need statins. * Patient cannot have MRI because of pacemaker. * PT OT evaluate gait. * Neurology coverage not available over the weekend. Please perfect serve if any concerns over the weekend.
[2019-12-18] MEDS ORDERED: METOPROLOL SUCCINATE (ER) 25 MG TAB.ER.24H PO SCH (21:00)
[2019-12-18] MEDS ORDERED: RIVAROXABAN 20 MG TAB PO SCH (21:00)
[2019-12-18] MEDS ORDERED: ATORVASTATIN 40 MG TAB PO SCH (21:00)
[2019-12-18] MEDS ORDERED: EZETIMIBE 10 MG TAB PO SCH (21:00)
[2019-12-18] MEDS ORDERED: LOSARTAN 50 MG TAB PO SCH (21:00)
[2019-12-18] MEDS: MAGNESIUM OXIDE 400 MG TAB PO SCH (21:11)
[2019-12-18] MEDS: DIFLUPREDNATE LEFT EYE SCH (21:41)
[2019-12-19 04:17] VITALS: RESP 16
[2019-12-19 07:57] LABS: Basophils # (A) 0.1 k/uL (0-0.2); Basophils % (A) 1 %; Eosinophils # (A) 0.4 k/uL (0-0.7); Eosinophils % (A) 8 %; HCT 49.2 % (39.0-53.0); HGB 15.5 gm/dL (13.0-17.5); Lymphocytes # (A) 1.5 k/uL (1.0-4.8); Lymphocytes % (A) 26 %; MCH 28.1 pg (25.0-35.0); MCHC 31.4 g/dL (31.0-37.0); MCV 89.4 fL (80.0-100.0); Mean Platelet Volume 9.1; Monocytes # (A) 0.4 k/uL (0-1.0); Monocytes % (A) 7 %; Neutrophils # (A) 3.3 k/uL (1.3-7.7); Neutrophils % (A) 56 %; Platelet Count 199 k/uL (150-450); RBC 5.51 m/uL (4.30-5.90); RDW 13.4 % (11.5-15.5); WBC 5.9 k/uL (3.8-10.6)
[2019-12-19 08:12] LABS: Calcium 8.8 mg/dL (8.4-10.2); Potassium 4.1 mmol/L (3.5-5.1)
[2019-12-19] MEDS: DIFLUPREDNATE LEFT EYE SCH (08:54)
[2019-12-19] MEDS: MAGNESIUM OXIDE 400 MG TAB PO SCH (08:54)
[2019-12-19] MEDS ORDERED: FUROSEMIDE 40 MG TAB PO SCH (09:00)
[2019-12-19] MEDS ORDERED: PANTOPRAZOLE 40 MG TABLET PO SCH ×2 (09:00)
[2019-12-19] MEDS ORDERED: ASPIRIN 81 MG PO SCH (09:00)
[2019-12-19 11:40] VITALS: BP 128/72; PULSE 82; TEMP 98.2
--- NOTE | 2019-12-19 13:34 | P.DS ---
Providers Date of admission: 12/18/19 10:13 Expected date of discharge: 12/19/19 Attending physician: Homer Tenorio Consults: 12/18/19 09:30 Consult Physician Stat Consulting Provider: Jese Leslie Consult Reason/Comments: code stroke Do you want consulting provider notified?: Already Contacted Primary care physician: Florence Tomlinson MD Hospital Course: This is a 74-year-old male with past medical history noted below that presented to the emergency room with a brief episode of right-sided body weakness and right hand numbness that lasted for a few minutes. Patient was evaluated in the ER and admitted to the hospital for further management of his medical problems noted below. 1. Suspected TIA with right-sided numbness and weakness now resolved. Computed tomography scan of the head and CT angiogram of the head and neck with no acute findings. Neurology consulted for further evaluation. Patient is on Rivaroxaban at home. Aspirin 81 mg daily added to his regimen. Patient has a pacemaker and unable to get MRI of the brain. Echocardiogram ordered and report pending. SEEN AND EVALUATED BY PT/OT/speech pathology 2. Chronic atrial fibrillation status post pacemaker implantation, on anticoagulation with Rivaroxaban. Heart rate well controlled. 3. Essential hypertension: Blood pressure well controlled. Continue home regimen 4. Mixed hyperlipidemia, on Zetia. Patient cannot tolerate statins. LDL 101. Counseled regarding lifestyle modification and exercise. 5. GERD on Protonix Patient will be discharged home in a stable condition. For further details about this hospitalization please refer to the electronic chart. Patient Condition at Discharge: Stable Plan - Discharge Summary Discharge Rx Participant: No New Discharge Prescriptions: New Aspirin 81 mg PO DAILY #30 chew Continue Ascorbic Acid [Vitamin C] 500 mg PO DAILY [place]-3/Dha/Epa/Fish Oil [Fish Oil EC 1,000 mg Softgel] 2 cap PO HS Multivitamins, Thera [Multivitamin (formulary)] 1 tab PO DAILY Ezetimibe [Zetia] 10 mg PO HS Calcium Carbonate [Calcium] 600 mg PO DAILY Rivaroxaban [Xarelto] 20 mg PO HS Pantoprazole Sodium [Protonix] 40 mg PO Q72H Levocetirizine Dihydrochloride 5 mg PO DAILY PRN PRN Reason: Allergy Symptoms Furosemide [Lasix] 40 mg PO DAILY Olopatadine HCl [Pataday] 1 drop BOTH EYES BID PRN PRN Reason: Allergy Symptoms Cholecalciferol [Vitamin D3 (25 Mcg = 1000 Iu)] 1,000 unit PO DAILY clonazePAM [KlonoPIN] 0.5 mg PO DAILY PRN PRN Reason: Anxiety cloNIDine HCL [Catapres] 0.1 mg PO DAILY PRN MDD OVER 155 PRN Reason: Blood Pressure - High Fluticasone Nasal [place] [Flonase Nasal [place]] 1 spr EA NOSTRIL DAILY PRN PRN Reason: Allergy Symptoms guaiFENesin [Mucinex] 600 mg PO BID Losartan Potassium 100 mg PO HS Magnesium Gluconate [Magonate] 500 mg PO BID Metoprolol Succinate [Toprol XL] 25 mg PO HS NIFEdipine [Procardia XL] 60 mg PO HS Difluprednate [Durezol] 1 drop LEFT EYE BID Albuterol Sulfate [Ventolin HFA] 1 - 2 puff INHALATION RT-Q6H PRN PRN Reason: Shortness Of Breath Discharge Medication List Ascorbic Acid [Vitamin C] 500 mg PO DAILY 08/27/16 [History] Calcium Carbonate [Calcium] 600 mg PO DAILY 08/27/16 [History] Ezetimibe [Zetia] 10 mg PO HS 08/27/16 [History] Furosemide [Lasix] 40 mg PO DAILY 08/27/16 [History] Levocetirizine Dihydrochloride 5 mg PO DAILY PRN 08/27/16 [History] Multivitamins, Thera [Multivitamin (formulary)] 1 tab PO DAILY 08/27/16 [History] Olopatadine HCl [Pataday] 1 drop BOTH EYES BID PRN 08/27/16 [History] [place]-3/Dha/Epa/Fish Oil [Fish Oil EC 1,000 mg Softgel] 2 cap PO HS 08/27/16 [History] Pantoprazole Sodium [Protonix] 40 mg PO Q72H 08/27/16 [History] Rivaroxaban [Xarelto] 20 mg PO HS 08/27/16 [History] Albuterol Sulfate [Ventolin HFA] 1 - 2 puff INHALATION RT-Q6H PRN 12/18/19 [History] Cholecalciferol [Vitamin D3 (25 Mcg = 1000 Iu)] 1,000 unit PO DAILY 12/18/19 [History] Difluprednate [Durezol] 1 drop LEFT EYE BID 12/18/19 [History] Fluticasone Nasal [place] [Flonase Nasal [place]] 1 spr EA NOSTRIL DAILY PRN 12/18/19 [History] Losartan Potassium 100 mg PO HS 12/18/19 [History] Magnesium Gluconate [Magonate] 500 mg PO BID 12/18/19 [History] Metoprolol Succinate [Toprol XL] 25 mg PO HS 12/18/19 [History] NIFEdipine [Procardia XL] 60 mg PO HS 12/18/19 [History] cloNIDine HCL [Catapres] 0.1 mg PO DAILY PRN MDD OVER 155 12/18/19 [History] clonazePAM [KlonoPIN] 0.5 mg PO DAILY PRN 12/18/19 [History] guaiFENesin [Mucinex] 600 mg PO BID 12/18/19 [History] Aspirin 81 mg PO DAILY #30 chew 12/19/19 [Rx] Follow up Appointment(s)/Referral(s): None,Stated [REFERRING] - 1-2 days Discharge Disposition: HOME SELF-CARE
== END 2019-12-19 14:29 | disposition home or self-care (01) | DRG 69 ==
LOC: EC 08:41 → 3SCARD 10:13
PROVIDERS: ADMIT Internal Medicine; ATTEND Internal Medicine
DX: G45.9 Transient cerebral ischemic attack, unspecified (principal); I48.20 Chronic atrial fibrillation, unspecified; I67.2 Cerebral atherosclerosis; I50.9 Heart failure, unspecified; I11.0 Hypertensive heart disease with heart failure; R40.2142 Coma scale, eyes open, spontaneous, at arrival to emergency department; R40.2362 Coma scale, best motor response, obeys commands, at arrival to emergency department; R40.2252 Coma scale, best verbal response, oriented, at arrival to emergency department; I49.3 Ventricular premature depolarization; I49.1 Atrial premature depolarization; J45.909 Unspecified asthma, uncomplicated; K21.9 Gastro-esophageal reflux disease without esophagitis; E78.2 Mixed hyperlipidemia; Z79.01 Long term (current) use of anticoagulants; Z79.899 Other long term (current) drug therapy; Z87.891 Personal history of nicotine dependence; Z86.73 Personal history of transient ischemic attack (TIA), and cerebral infarction without residual deficits; Z90.49 Acquired absence of other specified parts of digestive tract; Z87.19 Personal history of other diseases of the digestive system; Z87.2 Personal history of diseases of the skin and subcutaneous tissue; Z98.42 Cataract extraction status, left eye; Z98.41 Cataract extraction status, right eye; Z98.890 Other specified postprocedural states; Z95.0 Presence of cardiac pacemaker; Z86.010 Personal history of colon polyps; Z87.39 Personal history of other diseases of the musculoskeletal system and connective tissue; Z88.5 Allergy status to narcotic agent; Z80.42 Family history of malignant neoplasm of prostate; Z82.49 Family history of ischemic heart disease and other diseases of the circulatory system
CPT/HCPCS: 36415; 70450; 70496; 70498; 71046; 80048; 80053; 80061; 83036; 83735; 84443; 84484; 85025; 85610; 85730; 93005; 93306; 96360; 99291

== ENCOUNTER 2021-10-07 13:00 | Emergency (ER) | payer MEDICARE, BC ==
[2021-10-07 13:04] VITALS: TEMP 97.5
[2021-10-07] MEDS ORDERED: ASPIRIN 81 MG PO STA (13:19)
--- NOTE | 2021-10-07 13:21 | ED ---
General Adult HPI - General Chief complaint: Chest Pain Stated complaint: Chest Pain Time Seen by Provider: 10/07/21 13:10 Source: patient Mode of arrival: ambulatory Limitations: no limitations - History of Present Illness Initial comments: Dictation was produced using [employer] dictation software. please excuse any grammatical, word or spelling errors. Chief Complaint: 76-year-old male past medical history of cardiac disease presents to the emergency room for chest pressure History of Present Illness: This 76-year-old male has history of congestive heart failure, pacemaker and atrial fibrillation. He has an implanted AICD/defibrillator. This morning he had an episode that lasted for several minutes of chest pressure. States that it substernal and radiated to both sides of the chest. No associated nausea or vomiting. Pain does not rate on the extremities. Patient states that he had a clean cardiac catheterization is p erformed in [place] one to 2 years ago. Patient denies any known history of coronary artery disease. Patient is asymptomaticat the bedside currently. Denies any dyspnea. The ROS documented in this emergency department record has been reviewed and confirmed by me. Those systems with pertinent positive or negative responses have been documented in the HPI. All other systems are other negative and/or noncontributory. PHYSICAL EXAM: General Impression: Alert and oriented x3, not in acute distress HEENT: Normocephalic atraumatic, extra-ocular movements intact, pupils equal and reactive to light bilaterally, mucous membranes moist. Cardiovascular: Heart regular rate and rhythm Chest: Able to complete full sentences, no retractions, no tachypnea Abdomen: abdomen soft, non-tender, non-distended, no organomegaly Musculoskeletal: Pulses present and equal in all extremities, no peripheral edema Motor: no focal deficits noted Neurological: CN II-XII grossly intact, no focal motor or sensory deficits noted Skin: Intact with no visualized rashes Psych: Normal affect and mood ED course: 76 yOld well-appearing male with multiple cardiac comorbidities presents to the emergency department for episode of chest pressure. Patient reports no symptoms at the bedside. He reports that he had a completely clean catheterization within the last 2 years however we do not have information from the catheterization because was performed in [place]. Vital signs upon arrival are within acceptable limits. EKG does not show any signs of ischemia or infarction.Laboratory evaluation obtained. CBC, coag panel, metabolic panel is unremarkable. Troponin is negative. Lipase is normal. Chest x-ray is nonacute. Patient observed in emergency department for one hour use reevaluated at bedside at 2:15 PM. Patient given aspirin. It was recommended to patient to be admitted to observation for concerns of acute coronary syndrome however he refused stating that he is asymptomatic at the bedside and would prefer to be discharged and return to emergency department if he has any issues. Patient given return precautions. He understands that by requesting discharge that he is assuming some risk. Patient and at the bedside are agreeable. EKG interpretation: Ventricular rate 70, atrial pacemaker,. 160, QS 175, QTC 510. No AL prolongation, no QTC prolongation, no ST or T-wave changes noted. EKG compared to December 18, 2019 showing no changes. Overall, this EKG is unremarkable - Related Data Home Medications Medication Instructions Recorded Confirmed Ascorbic Acid [Vitamin C] 500 mg PO DAILY 08/27/16 12/18/19 Calcium Carbonate [Calcium] 600 mg PO DAILY 08/27/16 12/18/19 Ezetimibe [Zetia] 10 mg PO HS 08/27/16 12/18/19 Furosemide [Lasix] 40 mg PO DAILY 08/27/16 12/18/19 Levocetirizine Dihydrochloride 5 mg PO DAILY PRN 08/27/16 12/18/19 Multivitamins, Thera [Multivitamin 1 tab PO DAILY 08/27/16 12/18/19 (formulary)] Olopatadine HCl [Pataday] 1 drop BOTH EYES BID PRN 08/27/16 12/18/19 [place]-3/Dha/Epa/Fish Oil [Fish Oil 2 cap PO HS 08/27/16 12/18/19 EC 1,000 mg Softgel] Pantoprazole Sodium [Protonix] 40 mg PO Q72H 08/27/16 12/18/19 Rivaroxaban [Xarelto] 20 mg PO HS 08/27/16 12/18/19 Albuterol Sulfate [Ventolin HFA] 1 - 2 puff INHALATION RT-Q6H PRN 12/18/19 12/18/19 Cholecalciferol [Vitamin D3 (25 1,000 unit PO DAILY 12/18/19 12/18/19 Mcg = 1000 Iu)] Difluprednate [Durezol] 1 drop LEFT EYE BID 12/18/19 12/18/19 Fluticasone Nasal [place] [Flonase 1 spr EA NOSTRIL DAILY PRN 12/18/19 12/18/19 Nasal [place]] Losartan Potassium 100 mg PO HS 12/18/19 12/18/19 Magnesium Gluconate [Magonate] 500 mg PO BID 12/18/19 12/18/19 Metoprolol Succinate [Toprol XL] 25 mg PO HS 12/18/19 12/18/19 NIFEdipine [Procardia XL] 60 mg PO HS 12/18/19 12/18/19 cloNIDine HCL [Catapres] 0.1 mg PO DAILY PRN MDD OVER 155 12/18/19 12/18/19 clonazePAM [KlonoPIN] 0.5 mg PO DAILY PRN 12/18/19 12/18/19 guaiFENesin [Mucinex] 600 mg PO BID 12/18/19 12/18/19 Previous Rx's Medication Instructions Recorded Aspirin 81 mg PO DAILY #30 chew 12/19/19 Allergies Allergy/AdvReac Type Severity Reaction Status Date / Time ceftriaxone [From Rocephin] Allergy Unknown Verified 10/07/21 13:04 tramadol Allergy Rash/Hives Verified 10/07/21 13:04 Review of Systems ROS Statement: Those systems with pertinent positive or pertinent negative responses have been documented in the HPI. ROS Other: All systems not noted in ROS Statement are negative. Past Medical History Past Medical History: Atrial Fibrillation, Asthma, CVA/TIA, Eye Disorder, GERD/Reflux, Hyperlipidemia, Hypertension Additional Past Medical History / Comment(s): TIA approximately 10 yrs ago, past Afib/cardioversion and pt states now just has a few "extra beats", bradycardia with pacer, occasional lower leg edema pt states side effect of one of his medications/denies CHF, bronchitis, BPH, beinign colon polyps, diverticular di sease, seasonal sinus problems, L eye pain since cataract surgery. History of Any Multi-Drug Resistant Organisms: None Reported Past Surgical History: Cholecystectomy, Heart Catheterization, Orthopedic Surgery, Pacemaker Additional Past Surgical History / Comment(s): MARYSE/cardioversion, pacemaker, R knee arthroscopic surgery, colonoscopy/benign polypectomies, bilateral cataract removals, fatty tumor removed from neck. Additional Past Anesthesia/Blood Transfusion Reaction / Comment(s): Pt has tarun sterphobia. Past Psychological History: No Psychological Hx Reported Smoking Status: Never smoker Past Alcohol Use History: Rare Past Drug Use History: None Reported - Past Family History Father Family Medical History: Cancer Additional Family Medical History / Comment(s): Father from prostate cancer complications and had heart disease. 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 ] Respiratory 14 16 Rate Blood Pressure 142/90 134/82 O2 Sat by Pulse 97 96 Oximetry Medical Decision Making - Lab Data Result diagrams: 10/07/21 13:18 10/07/21 13:18 Lab Results 10/07/21 10/07/21 10/07/21 Range/Units 13:18 13:18 13:18 WBC 5.6 (3.8-10.6) k/uL RBC 5.71 (4.30-5.90) m/uL Hgb 16.5 (13.0-17.5) gm/dL Hct 52.3 (39.0-53.0) % MCV 91.7 (80.0-100.0) fL MCH 28.9 (25.0-35.0) pg MCHC 31.6 (31.0-37.0) g/dL RDW 13.8 (11.5-15.5) % Plt Count 175 (150-450) k/uL MPV 9.8 Neutrophils % 63 % Lymphocytes % 21 % Monocytes % 7 % Eosinophils % 6 % Basophils % 2 % Neutrophils # 3.5 (1.3-7.7) k/uL Lymphocytes # 1.2 (1.0-4.8) k/uL Monocytes # 0.4 (0-1.0) k/uL Eosinophils # 0.3 (0-0.7) k/uL Basophils # 0.1 (0-0.2) k/uL PT 14.0 H (9.0-12.0) sec INR 1.3 H (<1.2) APTT 34.1 H (22.0-30.0) sec Sodium 142 (137-145) mmol/L Potassium 4.2 (3.5-5.1) mmol/L Chloride 106 (98-107) mmol/L Carbon Dioxide 31 H (22-30) mmol/L Anion Gap 5 mmol/L BUN 23 H (9-20) mg/dL Creatinine 1.33 H (0.66-1.25) mg/dL Est GFR (CKD-EPI)AfAm 59 (>60 ml/min/1.73 sqM) Est GFR (CKD-EPI)NonAf 51 (>60 ml/min/1.73 sqM) Glucose 88 (74-99) mg/dL Calcium 9.2 (8.4-10.2) mg/dL Magnesium 2.3 (1.6-2.3) mg/dL Total Bilirubin 0.5 (0.2-1.3) mg/dL AST 38 (17-59) U/L ALT 42 (4-49) U/L Alkaline Phosphatase 91 (38-126) U/L Troponin I (0.000-0.034) ng/mL NT-Pro-B Natriuret Pep pg/mL Total Protein 7.0 (6.3-8.2) g/dL Albumin 4.3 (3.5-5.0) g/dL Lipase 22 L (23-300) U/L 10/07/21/ Range/Units 13:18 13:18 WBC (3.8-10.6) k/uL RBC (4.30-5.90) m/uL Hgb (13.0-17.5) gm/dL Hct (39.0-53.0) % MCV (80.0-100.0) fL MCH (25.0-35.0) pg MCHC (31.0-37.0) g/dL RDW (11.5-15.5) % Plt Count (150-450) k/uL MPV Neutrophils % % Lymphocytes % % Monocytes % % Eosinophils % % Basophils % % Neutrophils # (1.3-7.7) k/uL Lymphocytes # (1.0-4.8) k/uL Monocytes # (0-1.0) k/uL Eosinophils # (0-0.7) k/uL Basophils # (0-0.2) k/uL PT (9.0-12.0) sec INR (<1.2) APTT (22.0-30.0) sec Sodium (137-145) mmol/L Potassium (3.5-5.1) mmol/L Chloride (98-107) mmol/L Carbon Dioxide (22-30) mmol/L Anion Gap mmol/L BUN (9-20) mg/dL Creatinine (0.66-1.25) mg/dL Est GFR (CKD-EPI)AfAm (>60 ml/min/1.73 sqM) Est GFR (CKD-EPI)NonAf (>60 ml/min/1.73 sqM) Glucose (74-99) mg/dL Calcium (8.4-10.2) mg/dL Magnesium (1.6-2.3) mg/dL Total Bilirubin (0.2-1.3) mg/dL AST (17-59) U/L ALT (4-49) U/L Alkaline Phosphatase (38-126) U/L Troponin I <0.012 (0.000-0.034) ng/mL NT-Pro-B Natriuret Pep 730 pg/mL Total Protein (6.3-8.2) g/dL Albumin (3.5-5.0) g/dL Lipase (23-300) U/L Disposition Clinical Impression: Chest pain Disposition: HOME SELF-CARE Condition: Fair Instructions (If sedation given, give patient instructions): Chest Pain (ED) Is patient prescribed a controlled substance at d/c from ED?: No Referrals: None,Stated [Primary Care Provider] - 1-2 days Time of Disposition: 14:11
[2021-10-07 13:39] LABS: Basophils # (A) 0.1 k/uL (0-0.2); Basophils % (A) 2 %; Eosinophils # (A) 0.3 k/uL (0-0.7); Eosinophils % (A) 6 %; HCT 52.3 % (39.0-53.0); HGB 16.5 gm/dL (13.0-17.5); Lymphocytes # (A) 1.2 k/uL (1.0-4.8); Lymphocytes % (A) 21 %; MCH 28.9 pg (25.0-35.0); MCHC 31.6 g/dL (31.0-37.0); MCV 91.7 fL (80.0-100.0); Mean Platelet Volume 9.8; Monocytes # (A) 0.4 k/uL (0-1.0); Monocytes % (A) 7 %; Neutrophils # (A) 3.5 k/uL (1.3-7.7); Neutrophils % (A) 63 %; Platelet Count 175 k/uL (150-450); RBC 5.71 m/uL (4.30-5.90); RDW 13.8 % (11.5-15.5); WBC 5.6 k/uL (3.8-10.6)
--- NOTE | 2021-10-07 13:43 | XR ---
EXAMINATION TYPE: XR chest 2V DATE OF EXAM: 10/07/2021 COMPARISON: 12/18/2019 HISTORY: Shortness of breath TECHNIQUE: Frontal and lateral views of the chest are obtained. FINDINGS: Scattered senescent parenchymal changes noted. Hyperinflation compatible with COPD. No evidence for infiltrate. No evidence for atelectasis. Cardiomegaly with mild chronic pulmonary venous engorgement. No overt failure seen at this time. IACD device is in place. Mediastinal structures are stable and grossly unremarkable. No evidence for hilar prominence. Degenerative changes dorsal spine. IMPRESSION: 1. Cardiomegaly with mild chronic pulmonary venous engorgement. No overt failure seen at this time.
[2021-10-07 13:45] LABS: INR 1.3 (<1.2); Partial Thromboplastin Time 34.1 sec (22.0-30.0)
[2021-10-07 13:47] LABS: Albumin 4.3 g/dL (3.5-5.0); Calcium 9.2 mg/dL (8.4-10.2); Magnesium 2.3 mg/dL (1.6-2.3); Potassium 4.2 mmol/L (3.5-5.1); Total Bilirubin 0.5 mg/dL (0.2-1.3)
[2021-10-07 14:09] VITALS: BP 134/82; PULSE 71; RESP 16
== END 2021-10-07 14:24 | disposition home or self-care (01) ==
LOC: EC 13:00
DX: R07.89 Other chest pain (principal); J45.909 Unspecified asthma, uncomplicated; I10 Essential (primary) hypertension; K21.9 Gastro-esophageal reflux disease without esophagitis; Z79.83 Long term (current) use of bisphosphonates; Z86.73 Personal history of transient ischemic attack (TIA), and cerebral infarction without residual deficits; Z88.5 Allergy status to narcotic agent; Z88.1 Allergy status to other antibiotic agents
CPT/HCPCS: 36415; 71046; 80053; 83690; 83735; 83880; 84484; 85025; 85610; 85730; 99285

== ENCOUNTER → 2023-10-22 | Outpatient (CLI) | payer MEDICARE, BC ==
[2023-10-22 18:17] LABS: HCT 47.8 % (39.6-50.0); HGB 15.8 g/dL (13.0-17.0); MCH 29.7 pg (27.0-32.0); MCHC 33.1 g/dL (32.0-37.0); MCV 89.8 FL (80.0-97.0); NRBC Per 100 WBC 0 X 10*3/uL (0.00-0.01); Platelet Count 203 X 10*3/uL (140-440); RBC 5.32 X 10*6/uL (4.40-5.60); RDW 13.6 % (11.5-14.5); WBC 5.92 X 10*3/uL (4.50-10.00)
[2023-10-22 18:24] LABS: ALT 31 U/L (10-49); AST 23 U/L (14-35); Albumin 4.4 g/dL (3.8-4.9); Albumin/Globulin Ratio 1.91 Ratio (1.60-3.17); Alkaline Phosphatase 92 U/L (41-126); BUN/Creat Ratio 17.73 Ratio (12.00-20.00); Blood Urea Nitrogen 26.6 mg/dL (9.0-27.0); Calcium 9.6 mg/dL (8.7-10.3); Carbon Dioxide 28.3 mmol/L (21.6-31.8); Chloride 104 mmol/L (96-109); Globulin 2.3 g/dL (1.6-3.3); Glucose 108 mg/dL (70-110); Sodium 143 mmol/L (135-145); Total Bilirubin 0.3 mg/dL (0.3-1.2); Total Protein 6.7 g/dL (6.2-8.2)
== END | disposition home or self-care (01) ==
LOC: LABWHC1 15:27
PROVIDERS: ATTEND Nuclear Medicine Nuclear Cardiology
DX: I10 Essential (primary) hypertension (principal)
CPT/HCPCS: 36415; 80053; 85027

== ENCOUNTER 2023-11-13 11:12 | Emergency (ER) | payer MEDICARE, BC ==
[2023-11-13] MEDS ORDERED: ASPIRIN 81 MG ONE (11:58)
[2023-11-13] MEDS ORDERED: NITROGLYCERIN SL TABS 0.4 MG TAB SUBLINGUAL ONE (14:15)
[2023-11-13] MEDS ORDERED: MAGNESIUM SULFATE-D5W PMX 100 ML IVPB ONE (14:16)
[2023-11-13] MEDS ORDERED: SODIUM CHLORIDE 0.9% 1,000 ML BAG ONE (14:25)
--- NOTE | 2023-12-16 12:59 | XR ---
Chase Kemar ID: [id number] : 1945 EXAMINATION TYPE: XR chest 2V DATE OF EXAM: 11/13/2023 COMPARISON: 10/07/2021 HISTORY: 78-year-old male left sided chest pain TECHNIQUE: PA and lateral views FINDINGS: Left anterior chest wall ICD generator with right atrial, right ventricular, and coronary sinus leads . Heart borderline in size. Mild interstitial density is unchanged. Mild hyperinflation. No consolida tion. Chronic right perihilar nodularity, probably calcified granuloma. IMPRESSION: Chronic changes, possible underlying COPD. No definite acute process. AICD generator with 3 leads.
== END 2023-11-13 16:22 | disposition left against medical advice (07) ==
LOC: EC 11:12
CPT/HCPCS: 71046; 93005; 96374; 99285